=== PATIENT | female | born 1995 | race Caucasian/White ===

== ENCOUNTER 2017-05-21 18:33 | Emergency (ER) | payer MEDICAID ==
[~2017-05-21] VITALS: Ht 157.5 cm; Wt 72.6 kg
[2017-05-21 18:35] VITALS: BP_SYST 135
[2017-05-21] MEDS ORDERED: LORazepam 2 MG/ML VIAL (FOR ER USE) IVP ONE (20:00)
[2017-05-21] MEDS ORDERED: PROCHLORPERAZINE EDISYLATE 10 MG/2 ML VIAL IVP ONE (20:00)
[2017-05-21] MEDS ORDERED: NACL 0.9% 1,000 ML IV ONE (20:00)
[2017-05-21] MEDS ORDERED: KETOROLAC TROMETHAMINE 30 MG VIAL IVP ONE (21:30)
[2017-05-21] MEDS ORDERED: IBUPROFEN 400 MG TABLET PO ONE (22:00)
[2017-05-21 22:15] VITALS: BP_SYST 125
== END 2017-05-21 22:15 | disposition home or self-care (01) ==
LOC: SED 18:37
DX: S16.1XXA Strain of muscle, fascia and tendon at neck level, initial encounter (principal); F41.0 Panic disorder [episodic paroxysmal anxiety]; Z88.5 Allergy status to narcotic agent; X58.XXXA Exposure to other specified factors, initial encounter; Y93.89 Activity, other specified; Y92.89 Other specified places as the place of occurrence of the external cause; Y99.8 Other external cause status
CPT/HCPCS: 36415; 70450; 72125; 84703; 96361; 96374; 96375; 99285; J0780; J2060; J7030; J1885